=== PATIENT | male | born 1960 | race Caucasian/White ===

== ENCOUNTER → 2017-03-09 | Outpatient (CLI) | payer MEDICAID | LOC: CIMAGING 12:32 | PROVIDERS: ATTEND Family Medicine | DX: N50.3 Cyst of epididymis (principal) | CPT/HCPCS: 76870-PO ==

== ENCOUNTER → 2017-11-02 | Outpatient (CLI) | payer MEDICAID | LOC: FLAB 09:57 | PROVIDERS: ATTEND Family Medicine | DX: M25.561 Pain in right knee (principal); G89.29 Other chronic pain ==